=== PATIENT | female | born 1935 | race Caucasian/White ===

== ENCOUNTER 2016-10-18 06:27 | Day surgery (SDC) | payer OTHER ==
[~2016-10-18] VITALS: Ht 152.4 cm; Wt 49.8 kg
[2016-10-18] VITALS (17 sets, daily range): BP systolic 139–165; BP diastolic 60–92; PULSE 46–55; RESP 14–24
[2016-10-18] MEDS ORDERED: IODIXANOL LOCM 100 ML BTL ONE (06:56)
[2016-10-18] MEDS ORDERED: LIDOCAINE 1% (MDV) 20 ML INJ ONE (06:56)
[2016-10-18] MEDS ORDERED: FENTAnyl 50 MCG/ML VIAL ONE (06:56)
[2016-10-18] MEDS ORDERED: MIDAZOLAM 1 MG/ML 2 ML INJ ONE (06:56)
[2016-10-18] MEDS ORDERED: VERAPAMIL 5 MG INJ ONE (06:57)
[2016-10-18] MEDS ORDERED: NITROGLYCERIN (IC) 100 MCG/ML INJ ONE (06:57)
[2016-10-18] MEDS ORDERED: ASPI-664 PO (07:10)
[2016-10-18] MEDS ORDERED: OMEP40CA6 PO (07:10)
[2016-10-18] MEDS ORDERED: BENA20TA48 PO (07:10)
[2016-10-18 07:20] LABS: BASOPHIL # 0.1 10^3/ul (0.0-0.1); BASOPHILS % 1.1 % (0.0-2.0); EOSINOPHILS # 0.2 10^3/ul (0.0-0.5); EOSINOPHILS % 2.6 % (0.0-7.0); HEMATOCRIT 36.9 % (37.0-47.0); LYMPHOCYTES # 1.7 10^3/ul (0.8-2.9); LYMPHOCYTES % 27.7 % (15.0-51.0); MEAN CORPUSCULAR HEMOGLOBIN 32.7 pg (29.0-33.0); MEAN CORPUSCULAR HGB CONC 35.2 g/dl (32.0-37.0); MEAN CORPUSCULAR VOLUME 92.7 fl (82.0-101.0); MEAN PLATELET VOLUME 9.6 fl (7.4-10.4); MONOCYTE # 0.5 10^3/ul (0.3-0.9); MONOCYTES % 7.5 % (0.0-11.0); NEUTROPHILS % 60.4 % (39.0-77.0); PLATELET COUNT 269 10^3/UL (140-415); RED BLOOD COUNT 3.98 10^6/ul (4.20-5.40); RED CELL DISTRIBUTION WIDTH 12.5 % (11.5-14.5); WHITE BLOOD COUNT 6.1 10^3/ul (4.8-10.8)
[2016-10-18 07:29] LABS: INR 0.94; PROTIME 12.6 Sec (12.2-14.2)
[2016-10-18 07:30] LABS: PARTIAL THROMBOPLASTIN TIME 34.2 Sec (25.0-35.0)
[2016-10-18 07:31] LABS: CALCIUM 9.5 mg/dl (8.4-10.2); CREATININE 0.75 mg/dl (0.44-1.00)
[2016-10-18] MEDS ORDERED: PHENYLephrine (100 MCG/ML) 5ML SYG ONE (07:38)
[2016-10-18] MEDS ORDERED: SOD CHLORIDE 0.9% 1,000 ML IV SCH ×2 (08:00→09:38)
[2016-10-18] MEDS ORDERED: HEPARIN 1000 UNITS/ML 10 ML INJ ONE (08:40)
--- NOTE | 2016-10-18 08:49 | RADRPT ---
PROCEDURE: XR Chest. CLINICAL INDICATION: PRE OP TECHNIQUE: Single frontal view of the chest was obtained. COMPARISON: None. FINDINGS: The heart and mediastinum are within normal limits. The lungs are clear. There is no significant pleural effusion or pneumothorax. IMPRESSION: No acute disease. RPTAT: EE Physician Cristobal Date Time Electronically viewed and signed by Cem John Physician on 10/18/2016 08:49 RA/
--- NOTE | 2016-10-18 09:49 | OPR ---
Date/Time of Note Date/Time of Note DATE: 10/18/16 TIME: 09:39 Operative Report Procedure Date: Oct 18, 2016 Preoperative Diagnosis Chest pain Abnormal stress test Postoperative Diagnosis Nonobstructive coronary artery disease Operation Performed Left heart catheterization Right and left coronary angiogram Interpretation and supervision of right left coronary angiogram Left ventricular pressure measurements Left radial artery and right femoral artery approach Conscious sedation Surgeon: Manoj Marshall DO Anesthesia Type: other (Conscious sedation) Estimated Blood Loss: minimal Complications: no Pt Condition Post Procedure: stable Disposition: PACU Operative\Procedure Findings Hemodynamics LV pressure 123/-6 with EDP of 7 Aortic pressure 121/42 Fluoroscopy Left main is a medium caliber vessel with no significant disease Circumflex is a small to medium caliber vessel proximal 10% stenosis and distal 20% diffuse stenosis LAD is a medium caliber vessel and terminates prior to the apex with 20% proximal stenosis and 20% mid stenosis RCA is a large caliber vessel and is dominant with proximal 20% stenosis and distal 30% diffuse stenosis With injections of the left system, patient with noticeable aortic insufficiency Procedure Description Patient was brought to the [facility] after informed consent. Patient was prepped and draped as per protocol. Left radial axis was obtained using ultrasound guidance and a 5/6 Brazilian sheath was placed left radial artery. Initially a 5 Brazilian Carmel catheter was used and unable to engage the left main. Able to engage the RCA and angiogram was performed. While doing this, the catheter fell into the left ventricle and pressure measurements were obtained as well back. We next used multiple catheters in attempts of engaging in the left main including 5 Brazilian JL 3.5, 6 Brazilian JL 3.0, Carmel 3.5, XB LAD 3.0, VL 3.0 and unsuccessful. We next switched to right femoral artery approach. Initially 5 Brazilian sheath was used and a 5 Brazilian JL 3.5 diagnostic catheter would not engage. We next had a upsized to a 6 Brazilian sheath and a 6 Brazilian JL 3.0 diagnostic catheter was used in the left main was engaged. Angiography was performed of the left system. While doing the angiogram, patient with noticeable aortic insufficiency. All catheters and wires removed. There is no immediate complications. Manoj Marshall DO Oct 18, 2016 09:49
--- NOTE | 2016-10-18 09:50 | PDOCDIS ---
Discharge Instructions CONDITION Patient Condition: Good HOME CARE INSTRUCTIONS: Diet Instructions: Low Fat /Cholesterol ACTIVITY: Activity Restrictions: Slowly Increase Activity Avoid heavy lifting (No lifting more than 5 pounds for the next 4 days) [address] (3 days) Manoj Marshall DO Oct 18, 2016 09:50
[2016-10-18] MEDS ORDERED: ONDANSETRON 4 MG INJ IV PRN (10:00)
[2016-10-18] MEDS ORDERED: ACETAMINOPHEN 325 MG TAB PO PRN (10:00)
[2016-10-18] MEDS ORDERED: AL HYDROX/MG HYDROX/SIMETH 30 ML CUP PO PRN (10:00)
--- NOTE | 2016-10-18 19:35 | RADRPT ---
Vent Rate: 52 bpm RR Interval: 0 msec FL Interval: 166 msec QRS Duration: 156 msec QT Interval: 500 msec QTC Interval: 465 msec P-R-T Scott: 42 - 10 - 80 degrees Sinus bradycardia Left bundle branch block Abnormal ECG Electronically Signed By: Jared Kent [id number]
== END 2016-10-18 16:46 | disposition home or self-care (01) ==
LOC: SDS 06:27
PROVIDERS: ATTEND Internal Medicine Cardiovascular Disease
DX: I25.10 Atherosclerotic heart disease of native coronary artery without angina pectoris (principal)
CPT/HCPCS: 71010; 80048; 85025; 85610; 85730; 93005; 93458; C1887; J1644; J2250; J3010; Q9967; J2370